=== PATIENT | female | born 1975 | race African-American/Black ===

== ENCOUNTER 2016-06-01 14:34 | Emergency (ER) | payer OTHER ==
[~2016-06-01] VITALS: Ht 165.1 cm; Wt 117.8 kg
[~2016-06-01 14:34] MED LIST: CEPHALEXIN500 MG PO; INDOCIN25 MG PO; NORCO 7.5/321 TABLET PO; XYLOCAINE VISC100 ML MM
[2016-06-01 15:31] LABS: INFLUENZA A VIRAL ANTIGEN NEGATIVE; INFLUENZA B VIRAL ANTIGEN NEGATIVE
[2016-06-01] MEDS ORDERED: MUCUS ER600 MG PO (17:08)
[2016-06-01] MEDS ORDERED: TESSALON PERLE100 MG PO (17:08)
[2016-06-01] MEDS ORDERED: NAPROSYN500 MG PO (17:08)
[2016-06-01] MEDS ORDERED: DEBROX15 ML BOTH EARS (17:08)
[2016-06-01 17:50] VITALS: BP 147/88
== END 2016-06-01 18:01 | disposition home or self-care (01) ==
LOC: EME 14:34
PROVIDERS: Nurse Practitioner Family
DX: J06.9 Acute upper respiratory infection, unspecified (principal); M79.1 Myalgia; H61.21 Impacted cerumen, right ear; R03.0 Elevated blood-pressure reading, without diagnosis of hypertension; Z87.891 Personal history of nicotine dependence
CPT/HCPCS: 71020; 87502; 99281; 99283

== ENCOUNTER 2017-09-12 10:32 | Emergency (ER) | payer OTHER ==
[~2017-09-12] VITALS: Ht 165.1 cm; Wt 106.7 kg
[~2017-09-12 10:32] MED LIST changes: +DEBROX15 ML BOTH EARS; +MUCUS ER600 MG PO; +NAPROSYN500 MG PO; +TESSALON PERLE100 MG PO
[2017-09-12 11:03] LABS: HEMATOCRIT 36.1 % (36.0-46.0); HEMOGLOBIN 11.5 G/DL (11.9-15.5); MCH 30.4 PG (29.0-34.0); MCHC 31.9 G/DL (30.0-36.0); MCV 95.5 FL (83-99); PLATELET COUNT 395 K/uL (156-360); RBC DIS.WIDTH-CV 13.4 % (11.8-14.6); RBC DIS.WIDTH-SD 47.7 % (39-53); RED BLOOD COUNT 3.78 M/uL (3.80-5.20); WHITE BLOOD COUNT 5.2 K/uL (4.1-10.2)
[2017-09-12 11:24] LABS: TROP-I INTERPRETATION NEGATIVE; TROPONIN-I 0.02 ng/mL (0.0-0.30)
[2017-09-12 11:52] LABS: CHLORIDE 107 MEQ/L (99-109); SODIUM 139 MEQ/L (136-147)
[2017-09-12 11:58] LABS: CREATININE 0.6 MG/DL (0.6-1.3); GFR ESTIMATE (CALCULATED) > 59 mL/min/; GLUCOSE 86 mg/dL (70-99); UREA NITROGEN (BUN) 10 mg/dL (9-23)
[2017-09-12 13:49] VITALS: BP 148/91
== END 2017-09-12 13:49 | disposition home or self-care (01) ==
LOC: EME 10:32
DX: R07.9 Chest pain, unspecified (principal); H10.10 Acute atopic conjunctivitis, unspecified eye; Z87.891 Personal history of nicotine dependence
CPT/HCPCS: 71046; 80048; 84484; 85027; 93005; 99281; 99283

== ENCOUNTER 2017-10-16 15:00 | Emergency (ER) | payer OTHER ==
[~2017-10-16] VITALS: Ht 165.1 cm; Wt 103.6 kg
[2017-10-16] MEDS ORDERED: ULTRAM50 MG PO (15:15)
[2017-10-16] MEDS ORDERED: PEN-VEE K,VEET500 MG PO (15:15)
[2017-10-16] MEDS ORDERED: NAPROSYN500 MG PO (15:15)
[2017-10-16 15:30] VITALS: BP 177/116
== END 2017-10-16 15:35 | disposition home or self-care (01) ==
LOC: EME 15:00
DX: K04.7 Periapical abscess without sinus (principal); K64.9 Unspecified hemorrhoids
CPT/HCPCS: 99281; 99283